=== PATIENT | female | born 1995 | race Caucasian/White ===

== ENCOUNTER 2020-07-23 10:45 | Day surgery (SDC) | payer OTHER ==
[~2020-07-23] VITALS: Ht 172.7 cm; Wt 75.4 kg
[~2020-07-23 10:45] MED LIST: ACET-1600 PO; HYDR-1067 PO
[2020-07-23 11:07] VITALS: BP 108/73
[2020-07-23] MEDS ORDERED: MIDAZOLAM 1 MG/ML, 2ML ONE (11:17)
[2020-07-23] MEDS ORDERED: FENTANYL PF 250 MCG/5ML ONE (11:18)
[2020-07-23] MEDS ORDERED: GLYCOPYRROLATE 0.2MG/1ML, 5ML ONE (11:22)
[2020-07-23] MEDS ORDERED: DEXAMETHASONE 4 MG/ML, 1ML ONE (11:22)
[2020-07-23] MEDS ORDERED: CEFAZOLIN 1,000 MG ONE (11:22)
[2020-07-23] MEDS ORDERED: NEOSTIGMINE 1 MG/ML, 10ML ONE (11:22)
[2020-07-23] MEDS ORDERED: PROPOFOL 10 MG/ML, 20ML ONE (11:22)
[2020-07-23] MEDS ORDERED: ONDANSETRON 2MG/ML, 2ML ONE (11:22)
[2020-07-23] MEDS ORDERED: ROCURONIUM 10MG/ML,5ML ONE (11:22)
[2020-07-23] MEDS ORDERED: LIDOCAINE-MPF 1%, 2ML INFIL ONE (11:30)
[2020-07-23] MEDS ORDERED: LACTATED RINGERS 1,000 ML IV SCH (11:30)
[2020-07-23] MEDS ORDERED: CHLORHEXIDINE 15 ML UDC MM ONE (11:30)
[2020-07-23 11:34] LABS: HCG UR SG 1.017 (1.003-1.030)
[2020-07-23] MEDS ORDERED: BUPIVACAINE/PF 0.5% ONE (12:56)
[2020-07-23] MEDS ORDERED: EPINEPHRINE 1 MG/ML, 1ML ONE (12:56)
[2020-07-23] MEDS ORDERED: hydrALAzine 20 MG/ML, 1ML IV PRN (13:00)
[2020-07-23] MEDS ORDERED: LABETALOL 5MG/ML, 20ML IV PRN (13:00)
[2020-07-23] MEDS ORDERED: HALOPERIDOL 5 MG/ML IV PRN (13:00)
[2020-07-23] MEDS ORDERED: ACETAMINOPHEN 325 MG TABLET PO PRN (13:00)
[2020-07-23] MEDS ORDERED: HYDROmorphone 1 MG/ML, 1ML INJ IVPush PRN (13:00)
[2020-07-23] MEDS ORDERED: MEPERIDINE/PF 25MG/0.5ML IVPush PRN (13:00)
[2020-07-23] MEDS ORDERED: PROMETHAZINE 25 MG/ML, 1ML IVPush PRN (13:00)
[2020-07-23] MEDS ORDERED: morphine SULFATE 10 MG/ML, 1ML IVPush PRN (13:00)
[2020-07-23] MEDS ORDERED: FENTANYL PF 100 MCG/2ML ONE ×2 (13:32→15:11)
[2020-07-23] MEDS ORDERED: PROMETHAZINE 25 MG/ML, 1ML ONE (15:11)
[2020-07-23] MEDS: FENTANYL PF 100 MCG/2ML IV PRN ×3 (15:16→16:10)
[2020-07-23] MEDS ORDERED: ACETAMINOPHEN 650 MG/20.3 ML UDC ONE (15:39)
[2020-07-23] MEDS ORDERED: OXYcodone 5 MG/5 ML ORAL.SOL UDC ONE ×2 (15:39→16:38)
[2020-07-23] MEDS: OXYcodone 5 MG/5 ML ORAL.SOL UDC PO PRN ×2 (15:55→16:41)
== END 2020-07-23 18:30 | disposition home or self-care (01) ==
LOC: OUT 10:45
PROVIDERS: ATTEND Orthopaedic Surgery
DX: S52.121A Displaced fracture of head of right radius, initial encounter for closed fracture (principal); S52.131A Displaced fracture of neck of right radius, initial encounter for closed fracture; Z20.822 Contact with and (suspected) exposure to COVID-19; Z79.891 Long term (current) use of opiate analgesic; Z79.899 Other long term (current) drug therapy; W17.89XA Other fall from one level to another, initial encounter; Y93.31 Activity, mountain climbing, rock climbing and wall climbing; Y92.39 Other specified sports and athletic area as the place of occurrence of the external cause; Y99.8 Other external cause status
CPT/HCPCS: 24665; 73080; 73100; 81025; 87635; C1713; J0171; J0690; J1100; J2250; J2405; J2550; J2704; J3010; 76000; J2710